=== PATIENT | male | born 1990 | race Caucasian/White ===

== ENCOUNTER 2020-07-24 19:17 | Emergency (ER) | payer SELFPAY ==
[~2020-07-24] VITALS: Ht 177.8 cm; Wt 100.0 kg
[2020-07-24 19:20] VITALS: BP 154/103
== END 2020-07-24 20:17 ==
LOC: ER 19:17
DX: S00.81XA Abrasion of other part of head, initial encounter (principal); M25.572 Pain in left ankle and joints of left foot; M25.472 Effusion, left ankle; F10.129 Alcohol abuse with intoxication, unspecified; F19.90 Other psychoactive substance use, unspecified, uncomplicated; X58.XXXA Exposure to other specified factors, initial encounter; Y93.89 Activity, other specified; Y92.89 Other specified places as the place of occurrence of the external cause; Y99.8 Other external cause status; Y90.9 Presence of alcohol in blood, level not specified
CPT/HCPCS: 70450; 70486; 73610; 99285

== ENCOUNTER 2021-10-15 19:40 | Emergency (ER) | payer BC ==
[~2021-10-15] VITALS: Ht 175.3 cm; Wt 86.4 kg
[2021-10-15 19:42] VITALS: BP 166/97
== END 2021-10-15 20:11 | disposition home or self-care (01) ==
LOC: ER 19:40
DX: F10.129 Alcohol abuse with intoxication, unspecified (principal); F19.90 Other psychoactive substance use, unspecified, uncomplicated; Z72.89 Other problems related to lifestyle; V87.7XXA Person injured in collision between other specified motor vehicles (traffic), initial encounter; Y93.89 Activity, other specified; Y92.89 Other specified places as the place of occurrence of the external cause; Y99.8 Other external cause status; Y90.9 Presence of alcohol in blood, level not specified
CPT/HCPCS: 99284